=== PATIENT | male | born 1955 | race Caucasian/White ===

== ENCOUNTER → 2017-04-18 | Outpatient (CLI) | payer BC ==
[~2017-04-18] MED LIST: CARVEDILOL 25MG25 MG PO; FLONASE 50 MCG16 GM; FORTESTA10 MG/0.5 TP; HYDROCODONE/ACE1 TA5 PO; NORCO 325 MG-101 TAB PO; PERCOCET1 TA1 PO; PROVENTIL0.09 MG/A1 IH; TIZANIDINE HCL2 MG PO
[2017-04-18 12:55] LABS: AMPHETAMINES/METAMPHETAMINES NEGATIVE ng/mL (<1000)
[2017-04-22 16:40] LABS: Opiates Negative (Cutoff=100)
== END ==
LOC: LAB 12:23
PROVIDERS: Anesthesiology
DX: Z79.899 Other long term (current) drug therapy (principal)